=== PATIENT | female | born 1935 | race Caucasian/White ===

== ENCOUNTER 2020-04-30 08:00 | Outpatient (CLI) | payer MEDICARE, BC ==
--- NOTE | 2020-04-30 18:12 | XRAY Report ---
PROCEDURE: Wrist 3 View RT INDICATIONS: HEMATOMA OR R ARM TECHNIQUE: 3 views of the wrist were acquired. COMPARISON: None FINDINGS: Bones: There is distortion of the scaphotrapezial interface which may be due to chronic fracture def ormity. No acute fractures or dislocations. No suspicious bony lesions. Scaphoid view: Not requested Soft tissues: No suspicious soft tissue calcifications. IMPRESSION: Distortion of the scaphotrapezial interface, possibly due to chronic fracture deformity or dislocatio n. This could be further assessed with CT, if clinically indicated. Reviewed by: Hussein Calix MD on 04/30/2020 6:10 PM PDT Approved by: Hussein Calix MD on 04/30/2020 6:10 PM PDT Station ID: [id number]
== END 2020-04-30 23:59 | disposition home or self-care (01) ==
LOC: DI.S 08:00
PROVIDERS: ATTEND Physician Assistant
DX: R93.6 Abnormal findings on diagnostic imaging of limbs (principal)

== ENCOUNTER 2020-07-31 16:14 | Emergency (ER) | payer MEDICARE, BC ==
--- NOTE | 2020-07-31 16:24 | ED Physician Documentation ---
PD HPI HEAD INJURY - Stated complaint Stated Complaint: R THUMB INJURY - History obtained from History obtained from: Patient, Family - Additional information Additional information: She fell in the bathroom around 2:40 PM. No syncope. She did hit her head though, and injured her right thumb. Declines pain medication. Is up-to-date on tetanus. Review of Systems Constitutional: reports: Reviewed and negative Ears: reports: Reviewed and negative Nose: reports: Reviewed and negative Throat: reports: Reviewed and negative PD PAST MEDICAL HISTORY - Present Medications Home Medications: Ambulatory Orders Medication Instructions Recorded Confirmed Cephalexin [Keflex] 500 mg PO Q6H #28 capsule 07/31/20 - Allergies Allergies/Adverse Reactions: Allergies Allergy/AdvReac Type Severity Reaction Status Date / Time No Known Drug Allergies Allergy Verified 07/31/20 16:24 PD ED PE NORMAL - Vitals Vital signs reviewed: Yes - General General: Alert and oriented X 3, No acute distress - HEENT HEENT: PERRL, EOMI - Neck Neck: Supple, no meningeal sign, No bony TTP - Cardiac Cardiac: RRR, Other (Systolic murmur which she says has been worked up by a vocational horticulture instructor and is due for recheck in October.) - Respiratory Respiratory: No respiratory distress, Clear bilaterally - Abdomen Abdomen: Non tender - Extremities Extremities: Other (There is a laceration on the palmar side of the interphalangeal joint of the right thumb with deformity. Normal sensation and capillary refill at the tip.) - Neuro Neuro: Alert and oriented X 3, Normal speech Results - Vitals Vitals: Vital Signs - 24 hr 07/31/20 07/31/20 16:24 17:36 Temperature 36.8 C Heart Rate 96 61 Respiratory 16 16 Rate Blood Pressure 158/102 H 147/72 H O2 Saturation 95 98 Oxygen O2 Source Room air - Rads (name of study) Ct Head Radiology: EMP read contemporaneously (NAD) R thumb XR Radiology: EMP read contemporaneously (IP joint dorsal discloation) Procedures - Laceration (location) R thumb Length in cm: 1.5 Wound type: Linear Neurovascular status: Sensory intact, Motor intact, Vascular intact Tendon involvement: Tendon intact Anesthesia: Lidocaine 1%, With bicarb Wound Preparation: Hibiclens, Irrigated copiously NS Skin layer closure: Nylon, Interrupted, Size #-0 - enter number (4-0), Sutures - enter # (4) Other: Tetanus UTD Complexity: Simple - Splint (location) R thumb Splint applied by: Physician Type of splint: Fiberglass, Short arm, Thumb spica Other: Patient tolerated well, No complications, Neurovascular intact - Reduction Body part reduced: Right, Other (thumb IP joint) Fracture or dislocation: Dislocation Anesthesia: Digital block Reduction aftercare: Alignment improved PD MEDICAL DECISION MAKING - ED course Complexity details: d/w healthcare network consultant (Spoke with the on-call orthopedic surgeon, Dr. Xavier confirmed that it was fine to do a bedside digital block, irrigation and suturing and ulnar gutter splint with slight flexion.) ED course: Thumb was prepped with Hibiclens and then thoroughly irrigated, the dislocation was reduced and then the skin was closed with 4-0 nylon and placed in a thumb spica splint. Started on Keflex. She understands the need to follow-up with orthopedics early this coming week. Departure - Departure Disposition: 01 Home, Self Care Clinical Impression: Injury of head and neck Qualifiers: Encounter type: initial encounter Qualified Code(s): S09.90XA - Unspecified injury of head, initial encounter Thumb dislocation Qualifiers: Encounter type: initial encounter Laterality: right Qualified Code(s): S63.104A - Unspecified dislocation of right thumb, initial encounter Condition: Good Record reviewed to determine appropriate education?: Yes Instructions: ED Dislocation Finger Redu Follow-Up: [facility] [Provider Group] - 08/02/20 Prescriptions: Cephalexin [Keflex] 500 mg PO Q6H #28 capsule Comments: Splint on and dry, call the orthopedics office Sunday to call to make an appointment for early this week. Return for new or worsening symptoms. Discharge Date/Time: 07/31/20 17:50
[2020-07-31] MEDS ORDERED: BUFFERED LIDOCAINE 10 ML SYRINGE SUBQ STA (17:12)
--- NOTE | 2020-07-31 17:22 | CT Report ---
PROCEDURE: HEAD WO INDICATIONS: head inj TECHNIQUE: Noncontrast 4.5 mm thick angled axial sections acquired from the foramen magnum to the vertex. For r adiation dose reduction, the following was used: automated exposure control, adjustment of mA and/or kV according to patient size. COMPARISON: None. FINDINGS: Image quality: Excellent. The ventricular system and cortical sulci demonstrate atrophy, consistent for patient's stated age. There are areas of hypodensity in the periventricular and subcortical white matter. There is no acut e intra or extra-axial fluid collection. No acute hemorrhage, mass lesion or midline shift. Brainst em is unremarkable. Globes are symmetrical. Sinuses are aerated. Osseous structures are intact. IMPRESSION: 1. No acute intracranial process. 2. Moderate atrophy and chronic microvascular ischemic changes. Reviewed by: Danitza Alvarenga MD on 07/31/2020 5:21 PM PDT Approved by: Danitza Alvarenga MD on 07/31/2020 5:21 PM PDT Station ID: [id number]
--- NOTE | 2020-07-31 17:34 | XRAY Report ---
PROCEDURE: Finger(s) RT INDICATIONS: thumb inj TECHNIQUE: AP hand, 3 views of the first finger(s) acquired. COMPARISON: X-ray wrist 04/30/2020 FINDINGS: Bones: There is dislocation towards the radial aspect at the first DIP joint. No definitive fracture is identified. No suspicious bony lesions. Soft tissues: No suspicious soft tissue calcifications. IMPRESSION: First DIP joint dislocation without visualized fracture. Reviewed by: Danitza Alvarenga MD on 07/31/2020 5:33 PM PDT Approved by: Danitza Alvarenga MD on 07/31/2020 5:33 PM PDT Station ID: [id number]
[2020-07-31] MEDS ORDERED: CEPHALEXIN 250 MG Prepack 8 CAP BOTTLE PO STA (17:37)
[2020-07-31 17:43] VITALS: BP 147/72
== END 2020-07-31 17:50 | disposition home or self-care (01) ==
LOC: ED 16:14
DX: S09.90XA Unspecified injury of head, initial encounter (principal); S63.104A Unspecified dislocation of right thumb, initial encounter; W18.30XA Fall on same level, unspecified, initial encounter
CPT/HCPCS: 12011; 70450; 73140

== ENCOUNTER 2020-08-06 16:22 | Outpatient (CLI) | payer MEDICARE, BC ==
--- NOTE | 2020-08-06 16:28 | XRAY Report ---
PROCEDURE: Finger(s) RT INDICATIONS: RIGHT THUMB PAIN TECHNIQUE: AP hand, 3 views of the first finger(s) acquired. COMPARISON: X-ray fingers 07/31/2020 FINDINGS: Bones: Previous first DIP joint dislocation has been reduced. No visualized fractures. No suspicious bony lesions. Soft tissues: No suspicious soft tissue calcifications. IMPRESSION: Previous first digit DIP dislocation reduction. No visualized acute fracture or dislocation. However , occult injury cannot be excluded. Recommend short interval imaging follow-up in 7-10 days as clinic ally indicated for additional evaluation. Reviewed by: Danitza Alvarenga MD on 08/06/2020 4:27 PM PDT Approved by: Danitza Alvarenga MD on 08/06/2020 4:27 PM PDT Station ID: [id number]
== END 2020-08-06 23:59 | disposition home or self-care (01) ==
LOC: DI.WCP 16:22
PROVIDERS: ATTEND Physician Assistant
DX: S63.124A Dislocation of interphalangeal joint of right thumb, initial encounter (principal)
CPT/HCPCS: 73140

== ENCOUNTER 2021-02-09 08:00 | Outpatient (CLI) | payer MEDICARE, BC ==
[2021-02-09 19:53] LABS: BASOPHILS % (AUTO) 0.6 %; EOSINOPHILS # (AUTO) 0.1 10^3/uL (0.0-0.7); HCT - HEMATOCRIT 42.7 % (37.0-47.0); HGB - HEMOGLOBIN 13.7 g/dL (12.0-16.0); LYMPHOCYTES # (AUTO) 1.6 10^3/uL (1.5-3.5); LYMPHOCYTES % (AUTO) 22.6 %; MEAN CORPUSCULAR HGB CONC 32.1 g/dL (32.0-36.0); MEAN CORPUSCULAR VOLUME 96.6 fL (81.0-99.0); MEAN PLATELET VOLUME 11.6 fL (7.9-10.8); MONOCYTES # (AUTO) 0.5 10^3/uL (0.0-1.0); MONOCYTES % (AUTO) 7.1 %; NEUTROPHILS % (AUTO) 68.4 %; PLT - PLATELET COUNT 225 10^3/uL (130-450); RED BLOOD COUNT 4.42 10^6/uL (4.20-5.40); RED CELL DISTRIBUTION WIDTH 12.6 % (12.0-15.0); WHITE BLOOD COUNT 7.2 x10^3/uL (4.8-10.8)
== END 2021-02-09 23:59 | disposition home or self-care (01) ==
LOC: LAB.S 08:00
PROVIDERS: ATTEND Physician Assistant
DX: I73.81 Erythromelalgia (principal)
CPT/HCPCS: 36415; 85025